=== PATIENT | male | born 1995 | race Caucasian/White ===

== ENCOUNTER 2017-12-31 00:22 | Emergency (ER) | payer OTHER ==
[~2017-12-31] VITALS: Ht 190.5 cm; Wt 86.2 kg
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
--- NOTE | 2017-12-31 02:38 | RADIOLOGY REPORT ---
EXAMINATION: XR SHOULDER, RIGHT CLINICAL INFORMATION: Pain after fall COMPARISON: None TECHNIQUE: Three views of the right shoulder. FINDINGS: There is a comminuted fracture of the mid to distal clavicular shaft with inferior angulation of the major distal fragment. The acromioclavicular joint is intact. Glenohumeral alignment is anatomic. IMPRESSION: Comminuted, angulated fracture of the mid to distal clavicular shaft.
[2017-12-31] MEDS ORDERED: PERCOCET 5-3251 EACH PO (02:56)
[2017-12-31] MEDS ORDERED: IBUPROFEN800 M1 PO (02:56)
[2017-12-31 03:15] VITALS: BP 132/80
== END 2017-12-31 03:32 ==
LOC: ERH 00:22
DX: S42.001A Fracture of unspecified part of right clavicle, initial encounter for closed fracture (principal); W18.2XXA Fall in (into) shower or empty bathtub, initial encounter; Y93.E1 Activity, personal bathing and showering
CPT/HCPCS: 73030-RT; 96372; J1885